=== PATIENT | male | born 1960 | race Caucasian/White ===

== ENCOUNTER 2019-02-02 11:07 | Outpatient (CLI) | payer OTHER ==
--- NOTE | 2019-02-02 11:49 | RAD ---
RIGHT FOOT 2 VIEWS: Date; 02/02/19 HISTORY: Plantar fasciitis. Foot pain. FINDINGS: Joint alignment is within normal limits. Plantar arch is maintained. No acute fracture, dislocation, or aggressive osseous erosions. Small plantar and Achilles enthesophytes arise from the posterior asp ect of the calcaneus. IMPRESSION: Small heel spurs. No acute osseous abnormalities are demonstrated. POS: CET
--- NOTE | 2019-02-02 11:51 | RAD ---
LEFT FOOT TWO VIEWS: HISTORY: Foot pain. Plantar fasciitis. FINDINGS: Mild diffuse osteophytosis. Plantar arch is maintained. No acute fracture, dislocation, or aggressi ve osseous erosions. Small plantar enthesophyte at the inferior aspect of the calcaneus. IMPRESSION: 1. Small plantar heel spur. 2. Very mild osteoarthritic changes. POS: CET
== END 2019-02-02 11:08 | disposition home or self-care (01) ==
LOC: MADRAD 11:07
PROVIDERS: ATTEND Orthopaedic Surgery
DX: M72.2 Plantar fascial fibromatosis (principal); M19.072 Primary osteoarthritis, left ankle and foot; M77.30 Calcaneal spur, unspecified foot

== ENCOUNTER 2020-11-24 12:21 | Emergency (ER) | payer OTHER ==
--- NOTE | 2020-11-24 13:38 | CT ---
CT OF CHEST PERFORMED WITHOUT CONTRAST ENHANCEMENT: 11/24/20 HISTORY: Trauma to right chest. Lungs are clear of any infiltrative process. No pleural effusions. No evidence of pulmonary contusion or pneumothorax. No rib fractures are visualized. Thoracic aorta is normal in caliber. No mediastinal hematoma. The visualized liver parenchyma shows no focal findings. Post cholecystectomy changes are noted. IMPRESSION: No acute injury. POS: JEREMIAS
== END 2020-11-24 13:30 | disposition home or self-care (01) ==
LOC: MADERS 12:21
DX: S20.211A Contusion of right front wall of thorax, initial encounter (principal); Z87.891 Personal history of nicotine dependence; W17.89XA Other fall from one level to another, initial encounter
CPT/HCPCS: 71250